=== PATIENT | male | born 2000 | race Caucasian/White ===

== ENCOUNTER 2020-05-04 08:50 | Emergency (ER) | payer BC ==
[2020-05-04 08:53] VITALS: BP 135/63; PULSE 66; TEMP 97.5; BMI 32.9
== END 2020-05-04 09:50 | disposition home or self-care (01) ==
LOC: JER 08:50
DX: Z48.02 Encounter for removal of sutures (principal)
CPT/HCPCS: 99281-25

== ENCOUNTER 2023-05-16 06:28 | Emergency (ER) | payer BC ==
[2023-05-16 06:41] VITALS: RESP 20; BMI 36.1
[2023-05-16] MEDS ORDERED: ACETAMINOPHEN 500 MG TABLET (FP) PO ONE (07:49)
[2023-05-16] MEDS ORDERED: ACETAMINOPHEN 325 MG TABLET (FP) ONE (07:52)
[2023-05-16 09:30] VITALS: BP 104/52; PULSE 88; TEMP 99.1
[2023-05-16] MEDS ORDERED: DIPHTH,PERTUSS(ACELL),TET 0.5 ML DISP.SYRIN IM ONE (11:23)
== END 2023-05-16 09:49 | disposition home or self-care (01) ==
LOC: JER 06:28
DX: R50.9 Fever, unspecified (principal); M79.10 Myalgia, unspecified site; U07.1 COVID-19
CPT/HCPCS: 0241U-QW; 99283-25